=== PATIENT | female | born 1945 | race Caucasian/White ===

== ENCOUNTER 2017-02-11 12:31 | Emergency (ER) | payer MEDICARE, OTHER ==
[2017-02-11 13:46] LABS: CHLORIDE,CL 105 mmol/L (98-107); SODIUM,NA 142 mmol/L (136-145)
--- NOTE | 2017-02-11 14:03 | EDM.PDOC ---
ED HPI GENERAL MEDICAL PROBLEM - General Chief Complaint: Eye Problems Stated Complaint: VERY DIZZY Time Seen by Provider: 02/11/17 12:58 Source of Information: Reports: Patient History Limitations: Reports: No Limitations - History of Present Illness INITIAL COMMENTS - FREE TEXT/NARRATIVE: Patient comes in with complaints of eye/vision disturbance. She was driving when she began to feel like her visioin wasn't normal. She pulled the car over and her partner drove them here. She has not had this issue in the past. She does not take any medications, no medical history except for a recent appendectomy. She has no history of CT, CVA. Vegan eating habits. She and her partner are returning from [facility] to [place]. They have been hiking over 100 miles while there. She has no other complaints and her vision and all other complaints have returned to normal. Onset: Today, Sudden Onset Date: 02/11/17 Onset Time: 12:30 Duration: Resolved Prior to Arrival ED ROS GENERAL - Review of Systems Review Of Systems: See Below Constitutional: Reports: No Symptoms HEENT: Reports: No Symptoms Respiratory: Reports: No Symptoms Cardiovascular: Reports: No Symptoms Endocrine: Reports: No Symptoms GI/Abdominal: Reports: No Symptoms : Reports: No Symptoms Musculoskeletal: Reports: No Symptoms Skin: Reports: No Symptoms Neurological: Reports: No Symptoms Psychiatric: Reports: No Symptoms Hematologic/Lymphatic: Reports: No Symptoms Immunologic: Reports: No Symptoms ED EXAM GENERAL W FULL EYE - Physical Exam Exam: See Below Exam Limited By: No Limitations General Appearance: Alert, WD/WN, No Apparent Distress Eye Exam: Bilateral Eye: EOMI, PERRL With Correction: Yes Eyelids: Bilateral: Normal Appearance Conjunctiva & Sclera: Bilateral: Normal Appearance Cornea Exam: Bilateral: Normal Appearance Extraocular Movements: Bilateral: Intact Pupils: Normal Accommodation Pupillary Size: Bilateral: 3 mm Pupillary Reaction: Bilateral: Brisk Anterior Chamber: Bilateral: Normal Appearance Posterior Chamber: Bilateral: Normal Funduscopic Ears: Normal TMs Throat/Mouth: Normal Inspection Head: Atraumatic, Normocephalic Neck: Normal Inspection Respiratory/Chest: No Respiratory Distress, Lungs Clear, Normal Breath Sounds, No Accessory Muscle Use, Chest Non-Tender Cardiovascular: Normal Peripheral Pulses, Regular Rate, Rhythm, No Edema GI/Abdominal: Normal Bowel Sounds, Soft, Non-Tender, No Organomegaly Back Exam: Normal Inspection, Full Range of Motion Extremities: Normal Inspection, Normal Range of Motion, Non-Tender, No Pedal Edema, Normal Capillary Refill Neurological: Alert, Oriented, CN II-XII Intact, Normal Cognition, Normal Gait, Normal Reflexes, No Motor/Sensory Deficits Psychiatric: Normal Affect, Normal Mood Skin Exam: Warm, Dry, Intact Lymphatic: No Adenopathy Course - Orders/Labs/Meds Orders: Active Orders 24 hr Category Date Time Status EKG Documentation Completion [RC] ROUTINE Care 02/11/17 12:58 Ordered UA W/MICROSCOPIC [URIN] Stat Lab 02/11/17 12:58 Uncollected Labs: Laboratory Tests 02/11/17 02/11/17 02/11/17 Range/Units 13:05 13:05 13:05 WBC 6.9 (4.0-10.0) x10^3/uL RBC 4.48 (4.00-5.50) x10^6/uL Hgb 13.0 (12.0-16.0) g/dL Hct 39.0 (33.0-47.0) % MCV 87.1 (78.0-93.0) fL MCH 29.0 (26.0-32.0) pg MCHC 33.3 (32.0-36.0) g/dL RDW Coeff of Patricia 13.4 (10.0-15.0) % Plt Count 183 (130-400) x10^3/uL Neut % (Auto) 59.5 (50.0-80.0) % Lymph % (Auto) 31.2 (25.0-50.0) % [place] % (Auto) 6.7 (2.0-11.0) % Eos % (Auto) 2.2 (0.0-4.0) % Baso % (Auto) 0.4 (0.2-1.2) % PT 10.3 (10.0-12.8) SEC INR 0.9 L (2.0-3.5) Sodium 142 (136-145) mmol/L Potassium 3.6 (3.5-5.1) mmol/L Chloride 105 (98-107) mmol/L Carbon Dioxide 26 (21-32) mmol/L BUN 12 (7-18) mg/dL Creatinine 0.7 (0.55-1.02) mg/dL Est Cr Clr Drug Dosing TNP Estimated GFR (MDRD) > 60 Glucose 94 (74-106) mg/dL Calcium 8.6 (8.5-10.1) mg/dL Corrected Calcium 8.92 (8.5-10.1) mg/dL Total Bilirubin 0.4 (0.2-1.0) mg/dL AST 18 (15-37) U/L ALT 19 (14-59) U/L Alkaline Phosphatase 86 (46-116) U/L Creatine Kinase 51 (26-192) U/L Creatine Kinase Index 1.0 (0.0-4.0) % CK-MB (CK-2) TNP Troponin I < 0.017 (<=0.056) ng/mL C-Reactive Protein < 0.2 (<=0.9) mg/dL Total Protein 6.9 (6.4-8.2) g/dL Albumin 3.6 (3.4-5.0) g/dL Globulin 3.3 Albumin/Globulin Ratio 1.09 TSH, Ultra Sensitive 2.652 (0.358-3.74) uIU/mL Departure - Departure Time of Disposition: 13:56 Disposition: Home, Self-Care 01 Condition: Good Clinical Impression: Vision disturbance - Discharge Information Instructions: Visual Disturbances Additional Instructions: Your labwork is all within normal limits and without any abnormalities. When you return home, you should follow up with your primary provider and address the possible need for a GI consult, especially with continued black stools. If you have another episode of vision disturbance, you should also see neurology to rule out any neurologic condition as a cause. Please call us if you have any questions or concerns. - Problem List & Annotations (1) Vision disturbance SNOMED Code(s): 54577365 Code(s): H53.9 - UNSPECIFIED VISUAL DISTURBANCE Status: Acute Priority: Low Current Visit: Yes - Problem List Review Problem List Initiated/Reviewed/Updated: Yes - My Orders Last 24 Hours: My Active Orders 02/11/17 12:58 EKG Documentation Completion [RC] ROUTINE UA W/MICROSCOPIC [URIN] Stat - Assessment/Plan Last 24 Hours: My Active Orders 02/11/17 12:58 EKG Documentation Completion [RC] ROUTINE UA W/MICROSCOPIC [URIN] Stat Assessment:: vision disturbance Plan: Your labwork is all within normal limits and without any abnormalities. When you return home, you should follow up with your primary provider and address the possible need for a GI consult, especially with continued black stools. If you have another episode of vision disturbance, you should also see neurology to rule out any neurologic condition as a cause. Please call us if you have any questions or concerns.
[2017-02-11 15:52] VITALS: BP 148/78
== END 2017-02-11 14:00 | disposition home or self-care (01) ==
LOC: VM.ED 12:31
DX: H53.9 Unspecified visual disturbance (principal); Z90.49 Acquired absence of other specified parts of digestive tract
CPT/HCPCS: 36415; 80053; 82550; 84443; 84484; 85025; 85610; 86140; 93005; 99283-GF; 99284